=== PATIENT | female | born 1985 | race Caucasian/White ===

== ENCOUNTER → 2016-12-07 | Outpatient (CLI) | payer OTHER | LOC: COL.RAD 11:44 | DX: R06.02 Shortness of breath (principal) ==

== ENCOUNTER → 2017-03-28 | Outpatient (CLI) | payer OTHER | LOC: COL.PUL 03-12 11:20 | DX: R06.02 Shortness of breath (principal); Z87.891 Personal history of nicotine dependence ==

== ENCOUNTER → 2017-10-01 | Outpatient (CLI) | payer OTHER | LOC: COL.VAS 09-26 12:30 | DX: R06.02 Shortness of breath (principal) ==

== ENCOUNTER → 2018-03-31 | Outpatient (CLI) | payer OTHER | LOC: COL.RAD 08:06 | DX: R10.9 Unspecified abdominal pain (principal); R11.2 Nausea with vomiting, unspecified | CPT/HCPCS: A9541 ==